=== PATIENT | male | born 1990 | race American Indian/Alaskan Native ===

== ENCOUNTER 2018-11-17 11:38 | Observation (INO) | payer MEDICAID ==
[2018-11-17] MEDS ORDERED: Oxymetazoline 0.05% Nasal Spray (30 ml) NS STA (12:10)
[2018-11-17] MEDS ORDERED: Sodium Chloride 0.9% 1,000 ML IV ONE (12:18)
[2018-11-17] MEDS ORDERED: Sodium Chloride 0.9% 1,000 ML ONE (12:29)
--- NOTE | 2018-11-17 12:29 | C.PDOC ---
History Of Present Illness 28 y/o male with PMHx of back pain and migraines presents to the ED for evaluation s/p turbinate reduction nasal surgery this morning at 8am with Dr. Taylor. States he went home after the procedure and his nose started to bleed again. He went to Dr. Arceo office, where he began to develop throat pain and migraine headache. Patient took 2 Tylenol/Codeine and sumatriptan with limited relief. Dr. Taylor instructed patient to come here for observation and pain control. Patient states he also took a Xanax before the procedure. Headache is described as typical for his migraines, however the throat pain is new. He reports pain on swallowing. States he still feels groggy from the procedure. Pt was not intubated for the surgery. Otherwise he denies any fevers, visual changes, dizziness, SOB, nausea, vomiting, chest pain, weakness, numbness, paresthesias, or other associated symptoms. Time Seen by Provider: 11/17/18 11:42 Chief Complaint (Nursing): ENT Problem History Per: Patient History/Exam Limitations: None Onset/Duration Of Symptoms: Hrs Current Symptoms Are (Timing): Still Present Quality (Mouth/Throat): Tenderness, Other (Painful swallowing) Past Medical History Reviewed: Historical Data, Nursing Documentation, Vital Signs Vital Signs: Last Vital Signs Temp 97.5 F L 11/17/18 11:43 Pulse 78 11/17/18 11:43 Resp 20 11/17/18 11:43 BP 124/85 11/17/18 11:43 Pulse Ox 100 11/17/18 11:43 - Medical History PMH: Migraine Other Surgeries: Bilateral Turbinate Reduction. Wisdon Teeth Removal Family History: States: Unknown Family Hx - Social History Hx Tobacco Use: Yes Hx Alcohol Use: Yes Hx Substance Use: Yes - Immunization History Hx Tetanus Toxoid Vaccination: No Hx Influenza Vaccination: No Hx Pneumococcal Vaccination: No Review Of Systems Except As Marked, All Systems Reviewed And Found Negative. Constitutional: Negative for: Fever, Chills Eyes: Negative for: Vision Change ENT: Positive for: Nose Pain, Throat Pain, Other (Nose bleed) Cardiovascular: Negative for: Chest Pain, Palpitations, Light Headedness Respiratory: Negative for: Cough, Shortness of Breath Gastrointestinal: Negative for: Nausea, Vomiting, Abdominal Pain Musculoskeletal: Negative for: Neck Pain, Back Pain Skin: Negative for: Rash Neurological: Positive for: Headache. Negative for: Weakness, Numbness, Dizziness Physical Exam - Physical Exam Appears: Non-toxic, No Acute Distress Skin: Warm, Dry, No Rash Head: Atraumatic, Normacephalic Eye(s): bilateral: Normal Inspection, PERRL, EOMI Nose: Epistaxis (Small amount of bleeding from bilateral nares), No Septal Hematoma Oral Mucosa: Moist Tongue: Normal Appearing Lips: Normal Appearing Teeth: Normal Dentition Throat: No Erythema, No Exudate, No Drooling, Other (small amount of bleeding in posterior pharynx) Neck: Normal ROM, Supple Chest: Symmetrical Cardiovascular: Rhythm Regular, No Murmur Respiratory: No Rales, No Rhonchi, No Wheezing, Other (Lungs CTA bilaterally) Gastrointestinal/Abdominal: Soft, No Tenderness Back: Normal Inspection, No CVA Tenderness Extremity: Normal ROM, Capillary Refill (<2s) Extremity: Bilateral: Atraumatic, Normal Color And Temperature Pulses: Left Radial: Normal, Right Radial: Normal Neurological/Psych: Oriented x3, Normal Speech, Normal Cognition, Normal Cranial Nerves, Normal Motor, Normal Sensation, Other (No focal deficits) Gait: Steady ED Course And Treatment - Laboratory Results Result Diagrams: 11/17/18 14:32 11/17/18 14:32 O2 Sat by Pulse Oximetry: 100 (RA) Pulse Ox Interpretation: Normal Medical Decision Making Medical Decision Making: Initial Plan: * Consult Dr. Taylor 11:54am Spoke with Dr. Taylor, who advises observation and treatment of headache. Patient started on 1L IV fluids. [address] Cleaning, who recommends treatment of pain with morphine 1345 Patient continues to complain of pain, 2mg morphine administered 1415 Patient continues to complain of pain. Spoke with Dr. Taylor, who recommends admission and administration of dexamethasone 10mg IV. Will see patient in hospital. PMD is Dr. Saldana, who admits to hospitalist. Basic bloodwork ordered 1500 Bloodwork reviewed, significant for mild leukocytosis; otherwise unremarkable Rapid strep sent Hospitalist paged [phone] Henriquez, who accepts patient for inpatient admission for regular observation with diagnosis of intractable pain, migraine headache. Requests CT head and CXR that the admitting team will follow. Disposition - Disposition Disposition: HOSPITALIZED Disposition Time: 14:10 Condition: STABLE - Clinical Impression Clinical Impression: Intractable pain, Epistaxis, Migraine headache - PA / SENIOR WEB ENGINEER / Resident Statement MD/DO has reviewed & agrees with the documentation as recorded. - Scribe Statement The provider has reviewed the documentation as recorded by the Flipibjuana Oh All medical record entries made by the Marissa were at my direction and personal ly dictated by me. I have reviewed the chart and agree that the record accurately reflects my personal performance of the history, physical exam, medical decision making, and the department course for this patient. I have also personally directed, reviewed, and agree with the discharge instructions and disposition.
[2018-11-17] MEDS ORDERED: Dexamethasone 4 mg/1 ml ONE (14:21)
[2018-11-17 14:40] LABS: BASO % 0.2 % (0.0-2.0); EOS % 0.1 % (0.0-4.0); HEMOGLOBIN 14.5 g/dL (12.0-18.0); LYMPH # 0.9 K/uL (1.0-4.3); LYMPH % 8.6 % (20.0-40.0); MEAN CELL VOLUME 96.4 fL (80.0-94.0); MEAN CORPUSCULAR HEMOGLOBIN 31.9 pg (27.0-31.0); MEAN CORPUSCULAR HGB CONC 33.1 g/dL (33.0-37.0); MEAN PLATELET VOLUME 9.6 fL (7.2-11.7); MONO # 0.4 K/uL (0.0-0.8); MONO % 3.5 % (0.0-10.0); NEUT # 9.5 K/uL (1.8-7.0); NEUT % 87.6 % (50.0-75.0); PLATELET COUNT 168 K/uL (130-400); RBC 4.53 Mil/uL (4.40-5.90); RED CELL DISTRIBUTION WIDTH 14.7 % (11.5-14.5); WHITE BLOOD COUNT 10.9 K/uL (4.8-10.8)
[2018-11-17 14:51] LABS: PROTHROMBIN TIME 11.2 SECONDS (9.7-12.2)
[2018-11-17 14:54] LABS: BLOOD UREA NITROGEN 14 mg/dL (9-20); CALCIUM 9.1 mg/dl (8.6-10.4); GFR NON-AFRICAN AMERICAN > 60
[2018-11-17 14:55] LABS: ALB/GLOB RATIO 1.7 (1.0-2.1); ALBUMIN 4.8 g/dL (3.5-5.0); ALT/SGPT 16 U/L (21-72); AST/SGOT 44 U/L (17-59)
[2018-11-17 15:06] LABS: LYMPHOCYTE 8 % (20-40); MONOCYTE 3 % (0-10); NEUTROPHIL 89 % (50-75); PLATELET ESTIMATE NORMAL (NORMAL); TOTAL CELLS COUNTED 100
[2018-11-17 15:07] LABS: LARGE PLATELETS PRESENT
--- NOTE | 2018-11-17 15:26 | RAD ---
Date of service: 11/17/2018 HISTORY: admission COMPARISON: No prior. FINDINGS: LUNGS: The lungs are well inflated and clear. PLEURA: No pleural effusions or pneumothorax. CARDIOVASCULAR: The heart is normal in size. No aortic atherosclerotic calcifications present. OSSEOUS STRUCTURES: Within normal limits for the patient's age. VISUALIZED UPPER ABDOMEN: Normal. OTHER FINDINGS: None. IMPRESSION: No active pulmonary disease.
--- NOTE | 2018-11-17 15:45 | CT ---
Date of service: 11/17/2018 PROCEDURE: CT HEAD WITHOUT CONTRAST. HISTORY: Headache COMPARISON: None available. TECHNIQUE: Axial computed tomography images were obtained through the head/brain without intravenous contrast. Radiation dose: Total exam DLP = 1208.57 mGy-cm. This CT exam was performed using one or more of the following dose reduction techniques: Automated exposure control, adjustment of the mA and/or kV according to patient size, and/or use of iterative reconstruction technique. FINDINGS: HEMORRHAGE: No intracranial hemorrhage. BRAIN: No mass effect or edema. No atrophy or chronic microvascular ischemic changes. VENTRICLES: Unremarkable. No hydrocephalus. CALVARIUM: Unremarkable. PARANASAL SINUSES: Unremarkable as visualized. No significant inflammatory changes. MASTOID AIR CELLS: Unremarkable as visualized. No inflammatory changes. OTHER FINDINGS: None. IMPRESSION: No acute intracranial hemorrhage.
--- NOTE | 2018-11-17 17:06 | CP.PCM.HP ---
<Jermain Ramirez - Last Filed: 11/17/18 18:14> History of Present Illness - History of Present Illness History of Present Illness: PGY1 Medicine H and P for Dr. Henriquez This is 28 year old male with PMHx of migraine w/aura (funny feeling in head prior to onset), chronic sinusitis presenting to ED for head pain that started 3 hours after surgery for nasal turbinate reduction this morning at 8 am. Pt states that the pain began suddenly. It radiated from the back of his head bilaterally to his eyes periorbitally, nose, temporal region, and down to his throat midline above the sternum. He rates the pain as 8-9/10. He describes the pain in his head as "tight, pressured, cloudy, and achy." He describe shis throat pain as a "sticky" feeling. ore in his throat and "things sticking together." He states that the pain comes and goes. Asymptomatic when he sleeps, but restarts when he awakes. He took sumatriptian and acetaminophen/oxycodone, but it did not provide relief. He received intranasal lidocaine in the ENT's office with some relief. Placing ice on his head also relieved the pain. Pt states that the pain in his head is similar to his previous episodes of migraine, but the pain in his throat is first time. The throat pain is markedly improved and only rated a 3/10 at thi stime. He currently endorses photophobia, but denies nausea/vomiting, somnolence, sonophobia, neck stiffness. Pt also presenting for mild epistaxis that began 30 minutes after surgery this morning. He states that this has never happened before. Pt denies chest pain, abdominal pain, dysuria, hematuria, body aches, numbness, tingling, paresthesias, pruritus, or swelling, focal weakness, dizziness, sensa tion of throat closing, rash. ENT: Kristinin PMHx: Migraines, bulging disc PSHx: 4 wisdom teeth removal, bilateral nasal turbinate surgery today Social Hx: Pt smokes marijuana 14 g/week. Pt denies tobacco usage. Pt drinks EtOH occasionally. Pt denies any other illicit drug use. Medication: 100 mg Sumatriptan, Acetaminophen, 500mg Naproxen Allergies: Seafood (rash) Present on Admission - Present on Admission Any Indicators Present on Admission: No Review of Systems - Review of Systems All systems: reviewed and no additional remarkable complaints except (as per HPI) Past Patient History - Infectious Disease Hx of Infectious Diseases: None - Past Social History Smoking Status: Never Smoked - PSYCHIATRIC Hx Substance Use: Yes - SURGICAL HISTORY Hx Surgeries: Yes Other/Comment: Nasal surgery - ANESTHESIA Hx Anesthesia: Yes Hx Anesthesia Reactions: No Meds Allergies/Adverse Reactions: Allergies Allergy/AdvReac Type Severity Reaction Status Date / Time seafood Allergy RASH Uncoded 11/17/18 11:47 Physical Exam - Constitutional Appears: Non-toxic, No Acute Distress (pt is uncomfortable due to photophobia and headaches that come and go, but no distress) - Head Exam Head Exam: ATRAUMATIC, NORMAL INSPECTION - Eye Exam Eye Exam: EOMI, Normal appearance, PERRL Additional comments: mild lacrimation bilaterally, no conjunctival injection - ENT Exam ENT Exam: Mucous Membranes Moist Additional comments: dried blood in nares, no active bleeding - Neck Exam Neck exam: Positive for: Full Rom, Normal Inspection, Tenderness (trapezius hypertonicity and tenderness). Negative for: Lymphadenopathy, Meningismus - Respiratory Exam Respiratory Exam: Clear to Auscultation Bilateral, NORMAL BREATHING PATTERN. absent: Rales, Rhonchi, Wheezes, Respiratory Distress, Stridor - Cardiovascular Exam Cardiovascular Exam: REGULAR RHYTHM, +S1, +S2. absent: Tachycardia - GI/Abdominal Exam GI & Abdominal Exam: Normal Bowel Sounds, Soft. absent: Distended, Firm, Guarding, Rebound, Rigid, Tenderness - Extremities Exam Extremities exam: Positive for: normal capillary refill, normal inspection, pedal pulses present. Negative for: calf tenderness, pedal edema - Back Exam Back exam: NORMAL INSPECTION - Neurological Exam Neurological exam: Alert, CN II-XII Intact, Oriented x3 Additional comments: Strength: Upper extremities 5/5 bilaterally. Lower extremities 5/5 bilaterally. Sensation: Dermatomes C5-T2 intact bilaterally. L5-S2 intact bilaterally. Reflexes: 2+ bilaterally upper and lower extremities Negative Mohamud sign. Negative babinski sign. - Psychiatric Exam Psychiatric exam: Normal Affect, Normal Mood - Skin Skin Exam: Dry, Normal Color, Warm Results - Vital Signs Recent Vital Signs: Last Vital Signs Temp 98.5 F 11/17/18 16:58 Pulse 73 11/17/18 16:58 Resp 16 11/17/18 16:58 BP 127/80 11/17/18 16:58 Pulse Ox 98 11/17/18 16:58 - Labs Result Diagrams: 11/17/18 14:32 11/17/18 14:32 Labs: Laboratory Results - last 24 hr 11/17/18 11/17/18 11/17/18 14:32 14:32 14:32 WBC 10.9 H RBC 4.53 Hgb 14.5 Hct 43.7 MCV 96.4 H D MCH 31.9 H MCHC 33.1 RDW 14.7 H Plt Count 168 MPV 9.6 Neut % (Auto) 87.6 H Lymph % (Auto) 8.6 L Rutherford % (Auto) 3.5 Eos % (Auto) 0.1 Baso % (Auto) 0.2 Neut # (Auto) 9.5 H Lymph # (Auto) 0.9 L Rutherford # (Auto) 0.4 Eos # (Auto) 0.0 Baso # (Auto) 0.0 Neutrophils % (Manual) 89 H Lymphocytes % (Manual) 8 L Monocytes % (Manual) 3 Platelet Estimate Normal Large Platelets Present PT 11.2 INR 1.0 APTT 33 Sodium 141 Potassium 4.2 Chloride 104 Carbon Dioxide 27 Anion Gap 14 BUN 14 Creatinine 0.8 Est GFR ( Amer) > 60 Est GFR (Non-Af Amer) > 60 Random Glucose 105 Calcium 9.1 Total Bilirubin 0.6 AST 44 ALT 16 L D Alkaline Phosphatase 68 Total Protein 7.5 Albumin 4.8 Globulin 2.8 Albumin/Globulin Ratio 1.7 Grp A Beta Strep Ag 11/17/18 15:02 WBC RBC Hgb Hct MCV MCH MCHC RDW Plt Count MPV Neut % (Auto) Lymph % (Auto) Rutherford % (Auto) Eos % (Auto) Baso % (Auto) Neut # (Auto) Lymph # (Auto) Rutherford # (Auto) Eos # (Auto) Baso # (Auto) Neutrophils % (Manual) Lymphocytes % (Manual) Monocytes % (Manual) Platelet Estimate Large Platelets PT INR APTT Sodium Potassium Chloride Carbon Dioxide Anion Gap BUN Creatinine Est GFR ( Amer) Est GFR (Non-Af Amer) Random Glucose Calcium Total Bilirubin AST ALT Alkaline Phosphatase Total Protein Albumin Globulin Albumin/Globulin Ratio Grp A Beta Strep Ag Negative Assessment & Plan - Assessment and Plan (Free Text) Assessment: This is 28 year old male with PMHx of migraine w/aura (funny feeling in head prior to onset), chronic sinusitis presenting to ED for headache that started 3 hours after surgery for nasal turbinate reduction this morning at 8 am. Plan: Headache s/p nasal turbante reduction surgery Hx of chronic sinusitis Hx of migraines Head CT without contrast shows no acute intracranial pathology. Pt received Morphine 2 mg IVP x2 in the ED without significant relief ENT, Dr. Taylor, consulted. Neurology, Dr. Benito, consulted. Requests Gabapentin 300 mg PO TID. Carbemazepine 300 mg PO if no relief. Gabapentin 300 mg PO TID Flexeril 5 mg PO QHS O2 via NC Aspiration precaution, fall precaution, Neurochecks q4 Throat pain, improving Viscous lidocaine Full liquid diet CXR showed no cardiopulmonary disease. No radioopaque FB noted. Ppx: SCDs, no indication for chemical AC at this time No indication for PPI at this time <Radha Henriquez V - Last Filed: 11/17/18 22:53> Results - Vital Signs Recent Vital Signs: Last Vital Signs Temp 98.9 F 11/17/18 17:20 Pulse 73 11/17/18 17:20 Resp 20 11/17/18 17:20 BP 120/80 11/17/18 17:20 Pulse Ox 100 11/17/18 22:27 - Labs Result Diagrams: 11/17/18 14:32 11/17/18 14:32 Labs: Laboratory Results - last 24 hr 11/17/18 11/17/18 11/17/18 14:32 14:32 14:32 WBC 10.9 H RBC 4.53 Hgb 14.5 Hct 43.7 MCV 96.4 H D MCH 31.9 H MCHC 33.1 RDW 14.7 H Plt Count 168 MPV 9.6 Neut % (Auto) 87.6 H Lymph % (Auto) 8.6 L Rutherford % (Auto) 3.5 Eos % (Auto) 0.1 Baso % (Auto) 0.2 Neut # (Auto) 9.5 H Lymph # (Auto) 0.9 L Rutherford # (Auto) 0.4 Eos # (Auto) 0.0 Baso # (Auto) 0.0 Neutrophils % (Manual) 89 H Lymphocytes % (Manual) 8 L Monocytes % (Manual) 3 Platelet Estimate Normal Large Platelets Present PT 11.2 INR 1.0 APTT 33 Sodium 141 Potassium 4.2 Chloride 104 Carbon Dioxide 27 Anion Gap 14 BUN 14 Creatinine 0.8 Est GFR ( Amer) > 60 Est GFR (Non-Af Amer) > 60 Random Glucose 105 Calcium 9.1 Total Bilirubin 0.6 AST 44 ALT 16 L D Alkaline Phosphatase 68 Total Protein 7.5 Albumin 4.8 Globulin 2.8 Albumin/Globulin Ratio 1.7 Urine Opiates Screen Urine Methadone Screen Ur Barbiturates Screen Ur Phencyclidine Scrn Ur Amphetamines Screen U Benzodiazepines Scrn U Oth Cocaine Metabols U Cannabinoids Screen Grp A Beta Strep Ag 11/17/18 11/17/18 15:02 21:51 WBC RBC Hgb Hct MCV MCH MCHC RDW Plt Count MPV Neut % (Auto) Lymph % (Auto) Rutherford % (Auto) Eos % (Auto) Baso % (Auto) Neut # (Auto) Lymph # (Auto) Rutherford # (Auto) Eos # (Auto) Baso # (Auto) Neutrophils % (Manual) Lymphocytes % (Manual) Monocytes % (Manual) Platelet Estimate Large Platelets PT INR APTT Sodium Potassium Chloride Carbon Dioxide Anion Gap BUN Creatinine Est GFR ( Amer) Est GFR (Non-Af Amer) Random Glucose Calcium Total Bilirubin AST ALT Alkaline Phosphatase Total Protein Albumin Globulin Albumin/Globulin Ratio Urine Opiates Screen Positive H Urine Methadone Screen Negative Ur Barbiturates Screen Negative Ur Phencyclidine Scrn Negative Ur Amphetamines Screen Negative U Benzodiazepines Scrn Negative U Oth Cocaine Metabols Negative U Cannabinoids Screen Positive H Grp A Beta Strep Ag Negative Assessment & Plan (1) Throat pain Status: Acute (2) Chronic sinusitis Status: Chronic (3) Migraine Status: Chronic (4) Prophylactic measure Status: Acute Attending/Attestation - Attestation I have personally seen and examined this patient.: Yes I have fully participated in the care of the patient.: Yes I have reviewed all pertinent clinical information: Yes Notes (Text): Patient seen, examined, case discussed with director global medical affairs. This is a 28-year-old male past medical history. Chronic sinusitis refractory to p.o. meds underwent ENT procedure with return to be seen this morning CV surgery was discharged from procedure came back doing for intractable throat pain which is refractory to Tylenol with codeine morphine and given Decadron 10 mg IV in the ED per ENT as well as worsening migraine headaches in spite of Imitrex. Patient seen at bedside reports the pain is 4 out of 10. As well as I will migraine headache had recently received gabapentin. Patient noted migraines been on Imitrex for approximately 3 months worsened by light. Resident has discussed with both ENT and neurology at time of admission we will continue to monitor patient to see if symptoms subside and hopefully for possible discharge tomorrow. Admitting orders discussed with resident at time of admission
[2018-11-17 18:10] VITALS: RESP 20
[2018-11-17 22:13] LABS: BARBITURATES, UR NEGATIVE (NEGATIVE); BENZODIAZEPINES, UR NEGATIVE (NEGATIVE); OPIATES, UR POSITIVE (NEGATIVE); PHENCYCLIDINE, UR NEGATIVE (NEGATIVE)
--- NOTE | 2018-11-18 07:08 | CP.PCM.PN ---
Subjective - Date & Time of Evaluation Date of Evaluation: 11/18/18 Time of Evaluation: 07:07 Objective - Vital Signs/Intake and Output Vital Signs (last 24 hours): Temp Pulse Resp BP Pulse Ox 99.8 F H 110 H 20 122/62 98 11/18/18 00:00 11/18/18 00:00 11/18/18 00:00 11/18/18 00:00 11/18/18 00:00 - Medications Medications: Current Medications Cyclobenzaprine HCl (Flexeril) 5 mg PO HS [facility] Last Admin: 11/17/18 21:20 Dose: 5 mg Gabapentin (Neurontin) 300 mg PO TID [facility] Last Admin: 11/17/18 16:45 Dose: 300 mg - Labs Labs: 11/17/18 14:32 11/17/18 14:32 PT 11.2 SECONDS (9.7-12.2) 11/17/18 14:32 INR 1.0 11/17/18 14:32 APTT 33 SECONDS (21-34) 11/17/18 14:32
[2018-11-18 07:56] VITALS: BP 125/88; PULSE 92; TEMP 98.4; O2SAT 99
[2018-11-18 08:12] LABS: BASO % 0.1 % (0.0-2.0); HEMOGLOBIN 14.4 g/dL (12.0-18.0); LYMPH # 1.4 K/uL (1.0-4.3); LYMPH % 11.1 % (20.0-40.0); MEAN CELL VOLUME 95.5 fL (80.0-94.0); MEAN CORPUSCULAR HEMOGLOBIN 31.3 pg (27.0-31.0); MEAN CORPUSCULAR HGB CONC 32.8 g/dL (33.0-37.0); MEAN PLATELET VOLUME 9.5 fL (7.2-11.7); MONO % 7.8 % (0.0-10.0); NEUT # 10.3 K/uL (1.8-7.0); NRBC % 0.1 % (0.0-2.0); RBC 4.59 Mil/uL (4.40-5.90); RED CELL DISTRIBUTION WIDTH 14.6 % (11.5-14.5); WHITE BLOOD COUNT 12.7 K/uL (4.8-10.8)
[2018-11-18 08:16] LABS: ALB/GLOB RATIO 1.7 (1.0-2.1); ALBUMIN 4.5 g/dL (3.5-5.0); ALT/SGPT 24 U/L (21-72); AST/SGOT 29 U/L (17-59); BLOOD UREA NITROGEN 11 mg/dL (9-20); CALCIUM 9.4 mg/dl (8.6-10.4); GFR NON-AFRICAN AMERICAN > 60
[2018-11-18] MEDS ORDERED: Magnesium Oxide 400 mg Tab UD PO SCH (10:00)
[2018-11-18] MEDS ORDERED: Valproate 500 MG in Sodium Chloride 0.9% 100 ML IVPB ONE (11:19)
[2018-11-18] MEDS ORDERED: Magnesium Sulfate 1 gm in D5W 1 GM/100 ML BAG IVPB ONE (11:22)
--- NOTE | 2018-11-18 11:29 | CP.PCM.CON ---
History of Present Illness - History of Present Illness History of Present Illness: Neurology Consultation Note: Consult requested by Dr. Henriquez Mr. Toure is a [id number]-old man with a past medical history of migraine headaches, who had an ENT procedure yesterday (nasal turbinate), and had some epistaxis, but since then has been complaining of severe, unbearable headache that is radiating bilaterally to his temples, associated with photophobia, phonophobia and some nausea. He received some neurontin and said that the pain went down from an 8 to a 5, but still present. He has frequent migraines, several times/week and is being managed by a neurologist as an outpatient, but does not recall the name. He also has a family history of aneurysms and strokes. Review of Systems - Constitutional Constitutional: As Per HPI - EENT Eyes: absent: As Per HPI, Blind Spots, Blurred Vision, Change in Vision, Decreased Night Vision, Diplopia, Discharge, Dry Eye, Exophthalmos, Floaters, Irritation, Itchy Eyes, Loss of Peripheral Vision, Pain, Photophobia, Requires Corrective Lenses, Sees Flashes, Spots in Vision, Tunnel Vision, Other Visual Disturbances, Loss of Vision, Other Ears: absent: As Per HPI, Decreased Hearing, Ear Discharge, Ear Pain, Tinnitus, Abnormal Hearing, Disequilibrium, Dizziness, Other Nose/Mouth/Throat: As Per HPI - Cardiovascular Cardiovascular: absent: As Per HPI, Acrocyanosis, Chest Pain, Chest Pain at Rest, Chest Pain with Activity, Claudication, Diaphoresis, Dyspnea, Dyspnea on Exertion, Edema, Irregular Heart Rhythm, Pain Radiating to Arm/Neck/Jaw, Leg Edema, Leg Ulcers, Lightheadedness, Orthopnea, Palpitations, Paroxysmal Nocturnal Dyspnea, Pedal Edema, Radiating Pain, Rapid Heart Rate, Slow Heart Rate, Syncope, Other - Respiratory Respiratory: absent: As Per HPI, Cough, Dyspnea, Hemoptysis, Dyspnea on Exertion, Wheezing, Snoring, Stridor, Pain on Inspiration, Chest Congestion, Excessive Mucous Production, Change in Mucous Color, Pain with Coughing, Other - Musculoskeletal Musculoskeletal: absent: As Per HPI, Abnormal Gait, Arthralgias, Atrophy, Back Pain, Deformity, Joint Swelling, Limited Range of Motion, Loss of Height, Muscle Cramps, Muscle Weakness, Myalgias, Neck Pain, Numbness, Radiating Pain into Limb, Stiffness, Tingling, Other - Integumentary Integumentary: absent: As Per HPI, Acne, Alopecia, Bleeding Lesions, Change in Hair, Change in Nails, Change in Pigmentation, Changing Lesions, Dry Skin, Erythema, Furuncle, Hirsutism, Lesions, New Lesions, Non-Healing Lesions, Photosensitivity, Pruritus, Rash, Skin Pain, Skin Ulcer, Sores, Striae, Swelling, Unusual Bruising, Wounds, Jaundice, Other - Neurological Neurological: As Per HPI - Psychiatric Psychiatric: absent: As Per HPI, Abnormal Sleep Pattern, Anhedonia, Anxiety, Auditory Hallucinations, Behavioral Changes, Change in Appetite, Change in Libido, Confusion, Depression, Difficulty Concentrating, Hallucinations, Homicidal Ideation, Hopelessness, Irritability, Memory Loss, Mood Swings, Panic Attacks, Paranoia, Suicidal Ideation, Visual Hallucinations, Tactile Hallucinations, Other - Endocrine Endocrine: absent: As Per HPI, Change in Body Appearance, Change in Libido, Cold Intolorance, Deepening of Voice, Excessive Sweating, Fatigue, Flushing, Heat Intolorance, Increase in Ring/Shoe/Hat Size, Palpitations, Polydipsia, Polyphagia, Polyuria, Other - Hematologic/Lymphatic Hematologic: absent: As Per HPI, Easy Bleeding, Easy Bruising, Lymphadenopathy, Other Past Patient History - Infectious Disease Hx of Infectious Diseases: None - Past Social History Smoking Status: Never Smoked - NEUROLOGICAL Hx Migraine: Yes - MUSCULOSKELETAL/RHEUMATOLOGICAL Hx Falls: No - PSYCHIATRIC Hx Substance Use: Yes - SURGICAL HISTORY Hx Surgeries: Yes Other/Comment: Nasal surgery - ANESTHESIA Hx Anesthesia: Yes Hx Anesthesia Reactions: No Meds Allergies/Adverse Reactions: Allergies Allergy/AdvReac Type Severity Reaction Status Date / Time seafood Allergy RASH Uncoded 11/17/18 11:47 - Medications Medications: Current Medications Cyclobenzaprine HCl (Flexeril) 5 mg PO HS DANDRE Last Admin: 11/17/18 21:20 Dose: 5 mg Dexamethasone (Decadron Inj) 10 mg IV STAT STA Stop: 11/18/18 11:20 Gabapentin (Neurontin) 300 mg PO TID DANDRE Last Admin: 11/18/18 10:18 Dose: 300 mg Valproate Sodium 500 mg/ (Sodium Chloride) 105 mls @ 200 mls/hr IVPB ONCE ONE Stop: 11/18/18 11:50 Magnesium Oxide (Mag-Ox) 800 mg PO DAILY DANDRE Last Admin: 11/18/18 10:23 Dose: 800 mg Physical Exam - Constitutional Appears: Well - Head Exam Head Exam: ATRAUMATIC, NORMAL INSPECTION, NORMOCEPHALIC - Eye Exam Eye Exam: EOMI, Normal appearance, PERRL Pupil Exam: NORMAL ACCOMODATION, PERRL - ENT Exam ENT Exam: Mucous Membranes Moist, Normal Exam - Neck Exam Neck exam: Positive for: Normal Inspection - Respiratory Exam Respiratory Exam: Clear to Auscultation Bilateral, NORMAL BREATHING PATTERN - Cardiovascular Exam Cardiovascular Exam: REGULAR RHYTHM, +S1, +S2 - GI/Abdominal Exam GI & Abdominal Exam: Normal Bowel Sounds, Soft. absent: Tenderness - Extremities Exam Extremities exam: Positive for: normal inspection - Back Exam Back exam: NORMAL INSPECTION - Neurological Exam Neurological exam: Alert, CN II-XII Intact, Normal Gait, Oriented x3, Reflexes Normal - Psychiatric Exam Psychiatric exam: Normal Affect, Normal Mood - Skin Skin Exam: Dry, Intact, Normal Color, Warm Results - Vital Signs Recent Vital Signs: Last Vital Signs Temp 98.4 F 11/18/18 07:54 Pulse 92 H 11/18/18 07:54 Resp 20 11/18/18 07:54 BP 125/88 11/18/18 07:54 Pulse Ox 99 11/18/18 07:54 - Labs Result Diagrams: 11/18/18 07:50 11/18/18 07:50 Labs: Laboratory Results - last 24 hr 11/17/18 11/17/18 11/17/18 14:32 14:32 14:32 WBC 10.9 H RBC 4.53 Hgb 14.5 Hct 43.7 MCV 96.4 H D MCH 31.9 H MCHC 33.1 RDW 14.7 H Plt Count 168 MPV 9.6 Neut % (Auto) 87.6 H Lymph % (Auto) 8.6 L Stone % (Auto) 3.5 Eos % (Auto) 0.1 Baso % (Auto) 0.2 Neut # (Auto) 9.5 H Lymph # (Auto) 0.9 L [place] # (Auto) 0.4 Eos # (Auto) 0.0 Baso # (Auto) 0.0 Neutrophils % (Manual) 89 H Lymphocytes % (Manual) 8 L Monocytes % (Manual) 3 Platelet Estimate Normal Large Platelets Present PT 11.2 INR 1.0 APTT 33 Sodium 141 Potassium 4.2 Chloride 104 Carbon Dioxide 27 Anion Gap 14 BUN 14 Creatinine 0.8 Est GFR ( Amer) > 60 Est GFR (Non-Af Amer) > 60 Random Glucose 105 Calcium 9.1 Phosphorus Magnesium Total Bilirubin 0.6 AST 44 ALT 16 L D Alkaline Phosphatase 68 Total Protein 7.5 Albumin 4.8 Globulin 2.8 Albumin/Globulin Ratio 1.7 Urine Opiates Screen Urine Methadone Screen Ur Barbiturates Screen Ur Phencyclidine Scrn Ur Amphetamines Screen U Benzodiazepines Scrn U Oth Cocaine Metabols U Cannabinoids Screen Grp A Beta Strep Ag 11/17/18 11/17/18 11/18/18 15:02 21:51 07:50 WBC 12.7 H RBC 4.59 Hgb 14.4 Hct 43.9 MCV 95.5 H MCH 31.3 H MCHC 32.8 L RDW 14.6 H Plt Count 173 MPV 9.5 Neut % (Auto) 81.0 H Lymph % (Auto) 11.1 L [place] % (Auto) 7.8 Eos % (Auto) 0.0 Baso % (Auto) 0.1 Neut # (Auto) 10.3 H Lymph # (Auto) 1.4 Stone # (Auto) 1.0 H Eos # (Auto) 0.0 Baso # (Auto) 0.0 Neutrophils % (Manual) Lymphocytes % (Manual) Monocytes % (Manual) Platelet Estimate Large Platelets PT INR APTT Sodium Potassium Chloride Carbon Dioxide Anion Gap BUN Creatinine Est GFR ( Amer) Est GFR (Non-Af Amer) Random Glucose Calcium Phosphorus Magnesium Total Bilirubin AST ALT Alkaline Phosphatase Total Protein Albumin Globulin Albumin/Globulin Ratio Urine Opiates Screen Positive H Urine Methadone Screen Negative Ur Barbiturates Screen Negative Ur Phencyclidine Scrn Negative Ur Amphetamines Screen Negative U Benzodiazepines Scrn Negative U Oth Cocaine Metabols Negative U Cannabinoids Screen Positive H Grp A Beta Strep Ag Negative 11/18/18 07:50 WBC RBC Hgb Hct MCV MCH MCHC RDW Plt Count MPV Neut % (Auto) Lymph % (Auto) Stone % (Auto) Eos % (Auto) Baso % (Auto) Neut # (Auto) Lymph # (Auto) Stone # (Auto) Eos # (Auto) Baso # (Auto) Neutrophils % (Manual) Lymphocytes % (Manual) Monocytes % (Manual) Platelet Estimate Large Platelets PT INR APTT Sodium 138 Potassium 3.7 Chloride 102 Carbon Dioxide 27 Anion Gap 12 BUN 11 Creatinine 0.8 Est GFR ( Amer) > 60 Est GFR (Non-Af Amer) > 60 Random Glucose 107 Calcium 9.4 Phosphorus 3.9 Magnesium 1.4 L Total Bilirubin 0.6 AST 29 ALT 24 Alkaline Phosphatase 63 Total Protein 7.0 Albumin 4.5 Globulin 2.6 Albumin/Globulin Ratio 1.7 Urine Opiates Screen Urine Methadone Screen Ur Barbiturates Screen Ur Phencyclidine Scrn Ur Amphetamines Screen U Benzodiazepines Scrn U Oth Cocaine Metabols U Cannabinoids Screen Grp A Beta Strep Ag Assessment & Plan (1) Migraine headache Assessment and Plan: Discontinue neurontin. Will treat acutely with decadron 10 mg, depakote 500 mg and magnesium sulfate 1 gram IV ONCE. If the pain does not improve, will consider Ketamine and obtain MRI of the brain as well as MRA of the head/neck. Thank you for this consultation. Status: Acute
[2018-11-18] MEDS ORDERED: Dexamethasone 4 mg/1 ml IV ONE (11:30)
[2018-11-18] MEDS ORDERED: Pneumococcal 23-Valent Vaccine IM ONE (15:00)
--- NOTE | 2018-11-18 15:20 | CP.PCM.DIS ---
<Jermain Ramirez - Last Filed: 11/18/18 16:10> Provider - Provider Date of Admission: 11/17/18 15:11 Attending physician: Radha Henriquez DO Consults: 11/17/18 14:29 Otolaryngology Consult Routine Consulting Provider: Marin Taylor Consulting Physician: Marin Taylor Reason for Consult: S/p turbinate reduction; epistaxis, throat pain, headache 11/17/18 16:30 Neurology Consult Routine Comment: Consulting Provider: Antoine Benito Consulting Physician: Antoine Benito Reason for Consult: headache s/p nasal turbinate reducion, hx migraines Time Spent in preparation of Discharge (in minutes): 35 Diagnosis - Discharge Diagnosis (1) Throat pain Status: Resolved (2) Migraine Status: Chronic Hospital Course - Lab Results Lab Results: Micro Results 11/17/18 15:02 Throat Group A Strep Throat Culture - Final NO BETA STREP GROUP A ISOLATED. Most Recent Lab Values WBC 12.7 K/uL (4.8-10.8) H 11/18/18 07:50 RBC 4.59 Mil/uL (4.40-5.90) 11/18/18 07:50 Hgb 14.4 g/dL (12.0-18.0) 11/18/18 07:50 Hct 43.9 % (35.0-51.0) 11/18/18 07:50 MCV 95.5 fL (80.0-94.0) H 11/18/18 07:50 MCH 31.3 pg (27.0-31.0) H 11/18/18 07:50 MCHC 32.8 g/dL (33.0-37.0) L 11/18/18 07:50 RDW 14.6 % (11.5-14.5) H 11/18/18 07:50 Plt Count 173 K/uL (130-400) 11/18/18 07:50 MPV 9.5 fL (7.2-11.7) 11/18/18 07:50 Neut % (Auto) 81.0 % (50.0-75.0) H 11/18/18 07:50 Lymph % (Auto) 11.1 % (20.0-40.0) L 11/18/18 07:50 [place] % (Auto) 7.8 % (0.0-10.0) 11/18/18 07:50 Eos % (Auto) 0.0 % (0.0-4.0) 11/18/18 07:50 Baso % (Auto) 0.1 % (0.0-2.0) 11/18/18 07:50 Neut # (Auto) 10.3 K/uL (1.8-7.0) H 11/18/18 07:50 Lymph # (Auto) 1.4 K/uL (1.0-4.3) 11/18/18 07:50 [place] # (Auto) 1.0 K/uL (0.0-0.8) H 11/18/18 07:50 Eos # (Auto) 0.0 K/uL (0.0-0.7) 11/18/18 07:50 Baso # (Auto) 0.0 K/uL (0.0-0.2) 11/18/18 07:50 Neutrophils % (Manual) 89 % (50-75) H 11/17/18 14:32 Lymphocytes % (Manual) 8 % (20-40) L 11/17/18 14:32 Monocytes % (Manual) 3 % (0-10) 11/17/18 14:32 Platelet Estimate Normal (NORMAL) 11/17/18 14:32 Large Platelets Present 11/17/18 14:32 PT 11.2 SECONDS (9.7-12.2) 11/17/18 14:32 INR 1.0 11/17/18 14:32 APTT 33 SECONDS (21-34) 11/17/18 14:32 Sodium 138 mmol/L (132-148) 11/18/18 07:50 Potassium 3.7 mmol/L (3.6-5.2) 11/18/18 07:50 Chloride 102 mmol/L (98-107) 11/18/18 07:50 Carbon Dioxide 27 mmol/L (22-30) 11/18/18 07:50 Anion Gap 12 (10-20) 11/18/18 07:50 BUN 11 mg/dL (9-20) 11/18/18 07:50 Creatinine 0.8 mg/dL (0.8-1.5) 11/18/18 07:50 Est GFR ( Amer) > 60 11/18/18 07:50 Est GFR (Non-Af Amer) > 60 11/18/18 07:50 Random Glucose 107 mg/dL (75-110) 11/18/18 07:50 Calcium 9.4 mg/dl (8.6-10.4) 11/18/18 07:50 Phosphorus 3.9 mg/dL (2.5-4.5) 11/18/18 07:50 Magnesium 1.4 mg/dL (1.6-2.3) L 11/18/18 07:50 Total Bilirubin 0.6 mg/dL (0.2-1.3) 11/18/18 07:50 AST 29 U/L (17-59) 11/18/18 07:50 ALT 24 U/L (21-72) 11/18/18 07:50 Alkaline Phosphatase 63 U/L (38-126) 11/18/18 07:50 Total Protein 7.0 g/dL (6.3-8.3) 11/18/18 07:50 Albumin 4.5 g/dL (3.5-5.0) 11/18/18 07:50 Globulin 2.6 gm/dL (2.2-3.9) 11/18/18 07:50 Albumin/Globulin Ratio 1.7 (1.0-2.1) 11/18/18 07:50 Urine Opiates Screen Positive (NEGATIVE) H 11/17/18 21:51 Urine Methadone Screen Negative (NEGATIVE) 11/17/18 21:51 Ur Barbiturates Screen Negative (NEGATIVE) 11/17/18 21:51 Ur Phencyclidine Scrn Negative (NEGATIVE) 11/17/18 21:51 Ur Amphetamines Screen Negative (NEGATIVE) 11/17/18 21:51 U Benzodiazepines Scrn Negative (NEGATIVE) 11/17/18 21:51 U Oth Cocaine Metabols Negative (NEGATIVE) 11/17/18 21:51 U Cannabinoids Screen Positive (NEGATIVE) H 11/17/18 21:51 Grp A Beta Strep Ag Negative (NEGATIVE) 11/17/18 15:02 - Hospital Course Hospital Course: On admission: This is 28 year old male with PMHx of migraine w/aura (funny feeling in head prior to onset), chronic sinusitis presenting to ED for head pain that started 3 hours after surgery for nasal turbinate reduction this morning at 8 am. Pt states that the pain began suddenly. It radiated from the back of his head bilaterally to his eyes periorbitally, nose, temporal region, and down to his throat midline above the sternum. He rates the pain as 8-9/10. He describes the pain in his head as "tight, pressured, cloudy, and achy." He describe shis throat pain as a "sticky" feeling. ore in his throat and "things sticking together." He states that the pain comes and goes. Asymptomatic when he sleeps, but resta rts when he awakes. He took sumatriptian and acetaminophen/oxycodone, but it did not provide relief. He received intranasal lidocaine in the ENT's office with some relief. Placing ice on his head also relieved the pain. Pt states that the pain in his head is similar to his previous episodes of migraine, but the pain in his throat is first time. The throat pain is markedly improved and only rated a 3/10 at [facility]. He currently endorses photophobia, but denies nausea/vomiting, somnolence, sonophobia, neck stiffness. Pt also presenting for mild epistaxis that began 30 minutes after surgery this morning. He states that this has never happened before. Pt denies chest pain, abdominal pain, dysuria, hematuria, body aches, numbness, tingling, paresthesias, pruritus, or swelling, focal weakness, dizziness, sensation of throat closing, rash. Hospital course: Head CT without contrast shows no acute intracranial pathology. CXR showed no cardiopulmonary disease. No radioopaque FB noted. ENT, Dr. Taylor, was consulted and recommended IV steroids, which gave the pt some improvement. There was some component of neck muscle hypertonicity which was treated with a muscle relaxant. Neurology, Dr. Benito, consulted for migraine pain control. Pt responded to gabapentin and and symptoms resolved after Valproic acid treatment. He was informed to follow up with his Neurologist, and he states he has an appointment on thursday. He states he has an appointment with Dr. Taylor in 2 weeks. Neurology would like pt to be given Depakote to be taken at nighttime. On discharge interview, pt reports resolution of throat pain and headache. He did not have any nasal bleeding during hospital course. He only reports some nasal pain, which is mild, and some nasal congestion. He is tolerating diet. Denies fever, chills, chest pain, sob, abdominal pain, n/v/d, weakness, dizziness, lightheadedness, visual changes. This is a summary of the hospital course. Please see EMR for full details. Discharge Exam - Additional Findings Additional findings: - Constitutional Appears: Non-toxic, No Acute Distress - Head Exam Head Exam: ATRAUMATIC, NORMAL INSPECTION - Eye Exam Eye Exam: EOMI, Normal appearance, PERRL Additional comments: No lacrimation, no conjunctival injection - ENT Exam ENT Exam: Mucous Membranes Moist Additional comments: dried blood in nares, no active bleeding - Neck Exam Neck exam: Positive for: Full Rom, Normal Inspection, Tenderness (trapezius hypertonicity and tenderness). Negative for: Lymphadenopathy, Meningismus - Respiratory Exam Respiratory Exam: Clear to Auscultation Bilateral, NORMAL BREATHING PATTERN. absent: Rales, Rhonchi, Wheezes, Respiratory Distress, Stridor - Cardiovascular Exam Cardiovascular Exam: REGULAR RHYTHM, +S1, +S2. absent: Tachycardia - GI/Abdominal Exam GI & Abdominal Exam: Normal Bowel Sounds, Soft. absent: Distended, Firm, Guarding, Rebound, Rigid, Tenderness - Extremities Exam Extremities exam: Positive for: normal capillary refill, normal inspection, pedal pulses present. Negative for: calf tenderness, pedal edema - Neurological Exam Neurological exam: Alert, CN II-XII Intact, Oriented x3 Additional comments: Strength: Upper extremities 5/5 bilaterally. Lower extremities 5/5 bilaterally. - Psychiatric Exam Psychiatric exam: Normal Affect, Normal Mood - Skin Skin Exam: Dry, Normal Color, Warm Discharge Plan - Discharge Medications Prescriptions: Divalproex Sodium [Divalproex Sodium ER] 500 mg PO HS #30 ter - Follow Up Plan Condition: STABLE Disposition: HOME/ ROUTINE Instructions: Migraine Headache (DC), Nosebleeds (DC) Additional Instructions: Pt is medically stable for discharge home as per Dr. Henriquez. Pt should start taking Depakote 500 mg one tab by mouth every night. Pt can continue previously prescribed medications as needed. Pt should follow up with his neurologist within 1 week of discharge. Pt should follow up with his PMD within 2 weeks of discharge home. Pt should follow up with ENT, Dr. Taylor, as previously scheduled. Should symptoms worsen, please go to the nearest Emergency Department for further evaluation. Instructions explained to the pt, who understands and agrees with discharge plan. Referrals: Antoine Benito MD [Staff Provider] - <Radha Henriquez V - Last Filed: 11/19/18 22:07> Provider - Provider Date of Admission: 11/17/18 15:11 Attending physician: Radha Henriquez DO Consults: 11/17/18 14:29 Otolaryngology Consult Routine Consulting Provider: Marin Taylor Consulting Physician: Marin Taylor Reason for Consult: S/p turbinate reduction; epistaxis, throat pain, headache 11/17/18 16:30 Neurology Consult Routine Comment: Consulting Provider: Antoine Benito Consulting Physician: Anotine Benito Reason for Consult: headache s/p nasal turbinate reducion, hx migraines Diagnosis - Discharge Diagnosis (1) Throat pain Status: Resolved (2) Chronic sinusitis Status: Chronic (3) Migraine Status: Chronic (4) Prophylactic measure Status: Acute Hospital Course - Lab Results Lab Results: Micro Results 11/17/18 15:02 Throat Group A Strep Throat Culture - Final NO BETA STREP GROUP A ISOLATED. Most Recent Lab Values WBC 12.7 K/uL (4.8-10.8) H 11/18/18 07:50 RBC 4.59 Mil/uL (4.40-5.90) 11/18/18 07:50 Hgb 14.4 g/dL (12.0-18.0) 11/18/18 07:50 Hct 43.9 % (35.0-51.0) 11/18/18 07:50 MCV 95.5 fL (80.0-94.0) H 11/18/18 07:50 MCH 31.3 pg (27.0-31.0) H 11/18/18 07:50 MCHC 32.8 g/dL (33.0-37.0) L 11/18/18 07:50 RDW 14.6 % (11.5-14.5) H 11/18/18 07:50 Plt Count 173 K/uL (130-400) 11/18/18 07:50 MPV 9.5 fL (7.2-11.7) 11/18/18 07:50 Neut % (Auto) 81.0 % (50.0-75.0) H 11/18/18 07:50 Lymph % (Auto) 11.1 % (20.0-40.0) L 11/18/18 07:50 [place] % (Auto) 7.8 % (0.0-10.0) 11/18/18 07:50 Eos % (Auto) 0.0 % (0.0-4.0) 11/18/18 07:50 Baso % (Auto) 0.1 % (0.0-2.0) 11/18/18 07:50 Neut # (Auto) 10.3 K/uL (1.8-7.0) H 11/18/18 07:50 Lymph # (Auto) 1.4 K/uL (1.0-4.3) 11/18/18 07:50 [place] # (Auto) 1.0 K/uL (0.0-0.8) H 11/18/18 07:50 Eos # (Auto) 0.0 K/uL (0.0-0.7) 11/18/18 07:50 Baso # (Auto) 0.0 K/uL (0.0-0.2) 11/18/18 07:50 Neutrophils % (Manual) 89 % (50-75) H 11/17/18 14:32 Lymphocytes % (Manual) 8 % (20-40) L 11/17/18 14:32 Monocytes % (Manual) 3 % (0-10) 11/17/18 14:32 Platelet Estimate Normal (NORMAL) 11/17/18 14:32 Large Platelets Present 11/17/18 14:32 PT 11.2 SECONDS (9.7-12.2) 11/17/18 14:32 INR 1.0 11/17/18 14:32 APTT 33 SECONDS (21-34) 11/17/18 14:32 Sodium 138 mmol/L (132-148) 11/18/18 07:50 Potassium 3.7 mmol/L (3.6-5.2) 11/18/18 07:50 Chloride 102 mmol/L (98-107) 11/18/18 07:50 Carbon Dioxide 27 mmol/L (22-30) 11/18/18 07:50 Anion Gap 12 (10-20) 11/18/18 07:50 BUN 11 mg/dL (9-20) 11/18/18 07:50 Creatinine 0.8 mg/dL (0.8-1.5) 11/18/18 07:50 Est GFR ( Amer) > 60 11/18/18 07:50 Est GFR (Non-Af Amer) > 60 11/18/18 07:50 Random Glucose 107 mg/dL (75-110) 11/18/18 07:50 Calcium 9.4 mg/dl (8.6-10.4) 11/18/18 07:50 Phosphorus 3.9 mg/dL (2.5-4.5) 11/18/18 07:50 Magnesium 1.4 mg/dL (1.6-2.3) L 11/18/18 07:50 Total Bilirubin 0.6 mg/dL (0.2-1.3) 11/18/18 07:50 AST 29 U/L (17-59) 11/18/18 07:50 ALT 24 U/L (21-72) 11/18/18 07:50 Alkaline Phosphatase 63 U/L (38-126) 11/18/18 07:50 Total Protein 7.0 g/dL (6.3-8.3) 11/18/18 07:50 Albumin 4.5 g/dL (3.5-5.0) 11/18/18 07:50 Globulin 2.6 gm/dL (2.2-3.9) 11/18/18 07:50 Albumin/Globulin Ratio 1.7 (1.0-2.1) 11/18/18 07:50 Urine Opiates Screen Positive (NEGATIVE) H 11/17/18 21:51 Urine Methadone Screen Negative (NEGATIVE) 11/17/18 21:51 Ur Barbiturates Screen Negative (NEGATIVE) 11/17/18 21:51 Ur Phencyclidine Scrn Negative (NEGATIVE) 11/17/18 21:51 Ur Amphetamines Screen Negative (NEGATIVE) 11/17/18 21:51 U Benzodiazepines Scrn Negative (NEGATIVE) 11/17/18 21:51 U Oth Cocaine Metabols Negative (NEGATIVE) 11/17/18 21:51 U Cannabinoids Screen Positive (NEGATIVE) H 11/17/18 21:51 Grp A Beta Strep Ag Negative (NEGATIVE) 11/17/18 15:02 Attending/Attestation - Attestation I have personally seen and examined this patient.: Yes I have fully participated in the care of the patient.: Yes I have reviewed all pertinent clinical information, including history, physical exam and plan: Yes Notes (Text): This is late computer entry for 11/18/18. Patient seen, examined, and case discussed with medical transport specialist. patient seen in the afternoon with girlfriend at bedside. patient reports throat pain has resolved and migraines have subsided. Patient to follow-up with ENT for post care following procedure as outpatient. patient to follow-up with his neurologist at outpatient given hx of migraines. Per neurology, recommend Depakote. Discharge order discussed with medical transport specialist in detail. This is a brief summary of patient's hospitalization. Please see EMR for full detail of record.
[2018-11-18] MEDS ORDERED: Influenza Vaccine 60 mcg/0.5 mL SYR (4YR UP) IM ONE (16:15)
--- NOTE | 2018-11-18 20:26 | CON ---
DATE: 11/18/2018 REQUESTING PHYSICIAN: Radha Henriquez DO HISTORY OF PRESENT ILLNESS: This is a 28-year-old male status point turbinate reduction and balloon sinuplasty who had his migraine triggered after the procedure. The patient had severe headaches, went to the ER, and was admitted to the hospital and has been put on . The pain has improved; however, he still does have some headaches. On physical exam, there is no bleeding in his nose. Plan is to send him home once his pain is adequately managed by Neurology. Marin Taylor MD
== END 2018-11-18 16:56 | disposition home or self-care (01) ==
LOC: C.ER 11:38 → C.9E 15:11 → C.3T 16:54
PROVIDERS: ADMIT Hospitalist; ATTEND Hospitalist
DX: G43.909 Migraine, unspecified, not intractable, without status migrainosus (principal); F12.90 Cannabis use, unspecified, uncomplicated; J32.9 Chronic sinusitis, unspecified; R04.0 Epistaxis; Z82.3 Family history of stroke; Z87.891 Personal history of nicotine dependence
CPT/HCPCS: 36415; 70450; 71045; 80053; 80324; 80345; 80346; 80349; 80353; 80358; 80361; 83735; 83992; 84100; 85025; 85610; 85730; 87070; 87430; 90471; 90732; 96361; 96365; 96375; 96376; 99285; G0378; J1100; J2270; J3475; J7030